=== PATIENT | male | born 1985 | race Caucasian/White ===

== ENCOUNTER → 2018-03-09 08:45 | Outpatient (CLI) | payer MEDICARE ==
[2018-03-09 10:01] LABS: ALBUMIN 3.6 g/dL (3.4-5.0); BILIRUBIN - DIRECT 0.09 mg/dL (0.00-0.30); BILIRUBIN - INDIRECT 0.31 mg/dL (0.00-1.00); BILIRUBIN - TOTAL 0.4 mg/dL (0.2-1.3); PROTEIN - SERUM 7.5 g/dL (6.4-8.2)
== END | disposition home or self-care (01) ==
LOC: D.US 08:30
PROVIDERS: Internal Medicine Gastroenterology
DX: K76.0 Fatty (change of) liver, not elsewhere classified (principal)

== ENCOUNTER 2018-05-09 09:59 | Emergency (ER) | payer MEDICARE ==
[~2018-05-09] VITALS: Ht 188 cm; Wt 150.0 kg
[2018-05-09 10:09] VITALS: Ht 188 cm; Wt 150.0 kg
[2018-05-09 10:37] LABS: BASOPHILS 0.4 % (0-2); EOSINOPHILS 4.9 % (0-7); HEMATOCRIT 45.1 % (42.0-54.0); IMMATURE GRANULOCYTES 0.5 % (0-5); LYMPHOCYTES 33.5 % (15-50); MCH 27.6 pg (26.0-34.0); MCHC 33.3 g/dL (31.0-37.0); MCV 82.9 fL (80.0-100.0); MEAN PLATELET VOLUME 10.6 fL (7.4-10.4); MONOCYTES 8.1 % (2-11); NEUTROPHILS 52.6 % (40-80); PLATELET COUNT 246 10x3/uL (130-400); RBC 5.44 10x6/uL (4.20-6.10); RDW 12.8 % (11.5-14.5)
[2018-05-09 10:44] LABS: APPEARANCE CLEAR (CLEAR); BILIRUBIN NEGATIVE (NEGATIVE); COLOR YELLOW (YELLOW); GLUCOSE NEGATIVE (NEGATIVE); KETONE NEGATIVE (NEGATIVE); NITRITE NEGATIVE (NEGATIVE); PROTEIN NEGATIVE (NEGATIVE); SPECIFIC GRAVITY 1.025 (1.005-1.020); UROBILINOGEN NORMAL (NORMAL)
[2018-05-09 10:56] LABS: ALBUMIN 3.7 g/dL (3.4-5.0); ALKALINE PHOSPHATASE 58 U/L (46-116); ALT (SGPT) 69 U/L (10-68); CALC OSMOLALITY 284 mosm/kg (275-300); CALCIUM 9.1 mg/dL (8.5-10.1); CARBON DIOXIDE 26.2 mmol/L (21.0-32.0); CHLORIDE - SERUM 107 mmol/L (98-107); CREATININE - SERUM 1.3 mg/dL (0.6-1.3); GLUCOSE 111 mg/dL (74-106); POTASSIUM - SERUM 4.1 mmol/L (3.5-5.1); PROTEIN - SERUM 7.8 g/dL (6.4-8.2); SODIUM 142 mmol/L (136-145); UREA NITROGEN 14 mg/dL (7-18); eGFR NON AFRICAN AMERICAN 68 mL/min (90-120)
[2018-05-09 11:08] LABS: AMYLASE - SERUM 45 U/L (25-115); CKMB 0.9 U/L (0.0-3.6); LIPASE 117 U/L (73-393); TROPONIN-I < 0.017 ng/mL (0.000-0.060)
[2018-05-09] MEDS ORDERED: ULTRAM50 MG PO (12:00)
[2018-05-09 12:39] VITALS: BP 121/74
[2018-05-17 08:04] VITALS: Ht 188 cm; Wt 150.0 kg
== END 2018-05-09 12:41 | disposition home or self-care (01) ==
LOC: D.ER 09:59
PROVIDERS: Family Medicine
DX: R10.11 Right upper quadrant pain (principal); R16.0 Hepatomegaly, not elsewhere classified

== ENCOUNTER → 2018-05-11 06:13 | Outpatient (CLI) | payer MEDICARE ==
[2018-05-09 10:09] VITALS: BMI 42.4
[~2018-05-11 06:13] MED LIST: ULTRAM50 MG PO
[2018-05-17 08:04] VITALS: BMI 43.7
== END | disposition home or self-care (01) ==
LOC: D.MRI 06:13
DX: K76.9 Liver disease, unspecified (principal); K76.0 Fatty (change of) liver, not elsewhere classified

== ENCOUNTER 2018-05-17 06:57 | Outpatient (CLI) | payer MEDICARE ==
[~2018-05-17] VITALS: Ht 188 cm; Wt 154.5 kg
[2018-05-17 07:15] LABS: BASOPHILS 0.4 % (0-2); EOSINOPHILS 4.2 % (0-7); HEMATOCRIT 46.5 % (42.0-54.0); HEMOGLOBIN 15.7 g/dL (13.5-17.5); IMMATURE GRANULOCYTES 0.7 % (0-5); LYMPHOCYTES 34.5 % (15-50); MCH 27.9 pg (26.0-34.0); MCHC 33.8 g/dL (31.0-37.0); MCV 82.6 fL (80.0-100.0); MEAN PLATELET VOLUME 10.5 fL (7.4-10.4); MONOCYTES 9.4 % (2-11); NEUTROPHILS 50.8 % (40-80); PLATELET COUNT 244 10x3/uL (130-400); RBC 5.63 10x6/uL (4.20-6.10)
[2018-05-17 07:25] LABS: ANION GAP 12.6 mmol/L (8-16); CALCIUM 9.1 mg/dL (8.5-10.1); CARBON DIOXIDE 26.5 mmol/L (21.0-32.0); CREATININE - SERUM 1.2 mg/dL (0.6-1.3); POTASSIUM - SERUM 4.1 mmol/L (3.5-5.1)
[2018-05-17 07:30] LABS: APTT 27.8 SECONDS (22.8-39.4); INR 0.92 (0.85-1.17)
[2018-05-17 08:04] VITALS: BP 121/68; Ht 188 cm; Wt 154.5 kg
== END 2018-05-17 14:35 | disposition home or self-care (01) ==
LOC: D.SP 06:57 → D.CT 08:00 → D.SP 14:35 → D.CT 05-19 08:00
PROVIDERS: Radiology Vascular & Interventional Radiology
DX: D18.09 Hemangioma of other sites (principal); K76.0 Fatty (change of) liver, not elsewhere classified; Z01.812 Encounter for preprocedural laboratory examination

== ENCOUNTER 2018-09-11 09:54 | Emergency (ER) | payer MEDICARE ==
[~2018-09-11] VITALS: Ht 188 cm; Wt 154.5 kg
[2018-09-11 09:56] VITALS: Ht 188 cm; Wt 154.5 kg
[2018-09-11 10:33] LABS: HEMATOCRIT 44.7 % (42.0-54.0); HEMOGLOBIN 15.5 g/dL (13.5-17.5); MCHC 34.7 g/dL (31.0-37.0); MCV 80.8 fL (80.0-100.0); MEAN PLATELET VOLUME 10.5 fL (7.4-10.4); PLATELET COUNT 259 10x3/uL (130-400); RBC 5.53 10x6/uL (4.20-6.10); RDW 12.7 % (11.5-14.5); WBC 12.6 10x3/uL (4.8-10.8)
[2018-09-11 10:46] LABS: ANION GAP 17.9 mmol/L (8-16); BILIRUBIN - DIRECT 0.12 mg/dL (0.00-0.30); BILIRUBIN - INDIRECT 0.29 mg/dL (0.00-1.00); BILIRUBIN - TOTAL 0.41 mg/dL (0.2-1.3); CALCIUM 9.1 mg/dL (8.5-10.1); CREATININE - SERUM 1.3 mg/dL (0.6-1.3); POTASSIUM - SERUM 3.9 mmol/L (3.5-5.1); PROTEIN - SERUM 8.3 g/dL (6.4-8.2)
[2018-09-11 11:16] LABS: EOSINOPHILS 3 % (0-7); LYMPHOCYTES 3 % (15-50); MONOCYTES 10 % (2-11); NEUTROPHILS 58 % (40-80)
[2018-09-11 11:17] LABS: PLATELET ESTIMATE NORMAL; SMUDGE CELLS 1+; TEAR DROP CELLS 1+
[2018-09-11] MEDS ORDERED: BACLOFEN20 M1 PO (12:11)
[2018-09-11] MEDS ORDERED: BENTYL 20 MG TA20 MG PO (12:11)
[2018-09-11 12:24] VITALS: BP 121/76
== END 2018-09-11 12:25 | disposition home or self-care (01) ==
LOC: D.ER 09:54
PROVIDERS: Emergency Medicine
DX: R10.13 Epigastric pain (principal); K63.89 Other specified diseases of intestine

== ENCOUNTER 2019-03-07 21:24 | Emergency (ER) | payer MEDICARE ==
[~2019-03-07] VITALS: Ht 188 cm; Wt 159.1 kg
[~2019-03-07 21:24] MED LIST changes: +BACLOFEN20 M1 PO; +BENTYL 20 MG TA20 MG PO
[2019-03-07 21:39] VITALS: Ht 188 cm; Wt 159.1 kg
[2019-03-08 00:02] LABS: ALBUMIN 3.8 g/dL (3.4-5.0); BILIRUBIN - TOTAL 0.27 mg/dL (0.2-1.3); CALCIUM 9.3 mg/dL (8.5-10.1); CARBON DIOXIDE 28.9 mmol/L (21.0-32.0); CREATININE - SERUM 1.3 mg/dL (0.6-1.3); POTASSIUM - SERUM 3.9 mmol/L (3.5-5.1); PROTEIN - SERUM 7.9 g/dL (6.4-8.2)
[2019-03-08 00:04] LABS: HEMATOCRIT 44.5 % (42.0-54.0); HEMOGLOBIN 15.1 g/dL (13.5-17.5); LYMPHOCYTES 29.3 % (15-50); MCH 27.6 pg (26.0-34.0); MCHC 33.9 g/dL (31.0-37.0); MCV 81.2 fL (80.0-100.0); MEAN PLATELET VOLUME 10.4 fL (7.4-10.4); NEUTROPHILS 64.2 % (40-80); PLATELET COUNT 243 10x3/uL (130-400); RBC 5.48 10x6/uL (4.20-6.10); RDW 12.7 % (11.5-14.5); WBC 12.3 10x3/uL (4.8-10.8)
[2019-03-08] MEDS ORDERED: ZOFRAN4 MG PO (01:25)
[2019-03-08 01:54] VITALS: BP 122/79
== END 2019-03-08 01:54 | disposition home or self-care (01) ==
LOC: D.ER 21:24
PROVIDERS: Emergency Medicine
DX: R11.2 Nausea with vomiting, unspecified (principal); D18.09 Hemangioma of other sites

== ENCOUNTER 2019-03-28 05:48 | Outpatient (CLI) | payer MEDICARE, MEDICAID ==
--- NOTE | 2019-03-27 13:05 | NUR ---
CALLED PATIENT INSTRUCT NPO AFTER MN. NO BLOOD THINNERS PER PATIENT, WILL STAY THE NIGHT AND WILL BE AT HOSPITAL AT 0630.
[~2019-03-28] VITALS: Ht 188 cm; Wt 159.1 kg
--- NOTE | ~2019-03-28 | HEMODYNAMI ---
PATIENT:CARLOS HERNANDEZ MEDICAL RECORD: [id number] : 87 LOCATION:[facility] ADMISSION DATE: 03/28/19 Generatedon:03/28/201910:15 Patient name: CARLOS HERNANDEZ Patient #: [id number] SSN: : 1985 Date of study: 03/28/2019 Page: Of Hemodynamic Procedure Report Patient Data Patient Demographics Procedure consent was obtained First Name: CARLOS Gender: Male Last Name: MARY : 1985 [facility] Initial: MARGRET Age: 34 year(s) Patient #: [id number] Race: Unknown Additional ID: [id number] Contact details Address: [address] [place] [address] State: [place] City: [place] Zip code: [address] Admission Admission Data Admission Date: 03/28/2019 Admission Time: 5:48 Procedure Procedure Types Cath Procedure Peripheral Cath Diagnostic Procedure Miscellaneous Procedure Description Procedure Date Procedure Date: 03/28/2019 Procedure Start Time: 9:12 Procedure Staff Name Function Casey Guerra MD Performing Physician Isaak Vu RT Monitor Mia Schulte RT Scrub Sugar Schmitt RN Nurse Nicole Anthony RN Nurse Procedure Data Cath Procedure Fluoroscopy Diagnostic fluoroscopy Total fluoroscopy Time: 7.1 time: 7.1 min min Diagnostic fluoroscopy Total fluoroscopy dose: dose: 1732 mGy 1732 mGy Procedure Medications Medication Administration Route Dosage Lidocaine 1% added to field 20 Heparin Flush Bag added to field 2 bags (1000units/500ml NS) Benadryl I.V. 25 mg Fentanyl I.V. 50 mcg Versed I.V. 1 mg Benadryl I.V. 25 mg Versed I.V. 1 mg Fentanyl I.V. 50 mcg Fentanyl I.V. 50 mcg Versed I.V. 1 mg Hemodynamics Rest Heart Rate: 73 (bpm) Snapshots Pre Cath Intra NCS Post Cath Vital Signs Time Heart Resp SPO2 etCO2 NIBP (mmHg) Rhythm Pain Sedation Rate (ipm) (%) (mmHg) Status Level (bpm) 8:51:22 74 13 96 37.5 NSR 0 (11) 10(A) , No pain 8:56:01 73 14 96 42 136/88(105) NSR 0 (11) 10(A) , No pain 9:00:18 71 15 96 36 120/74(91) NSR 0 (11) 10(A) , No pain 9:04:30 73 18 96 38.3 122/74(91) NSR 0 (11) 10(A) , No pain 9:08:42 76 17 95 27.7 113/69(87) NSR 0 (11) 9(A) , No pain 9:11:45 74 13 97 41.3 117/74(99) NSR 0 (11) 8(A) , No pain 9:15:52 77 9 97 39.8 126/81(95) NSR 0 (11) 8(A) , No pain 9:20:11 71 6 93 34.5 110/75(93) NSR 0 (11) 8(A) , No pain 9:24:16 56 14 90 36 107/79(95) NSR 0 (11) 8(A) , No pain 9:28:26 76 14 92 42.8 109/71(91) NSR 0 (11) 8(A) , No pain 9:32:32 66 13 92 37.5 115/85(93) NSR 0 (11) 8(A) , No pain 9:36:44 73 14 91 40.5 116/76(93) NSR 0 (11) 8(A) , No pain 9:40:56 74 10 98 42.8 127/80(95) NSR 0 (11) 8(A) , No pain 9:45:10 79 16 97 33 119/76(92) NSR 0 (11) 8(A) , No pain 9:49:22 75 8 99 40.6 124/82(94) NSR 0 (11) 8(A) , No pain 9:53:36 74 15 98 36.8 115/84(95) NSR 0 (11) 8(A) , No pain 9:57:50 78 12 98 18.8 126/72(100) NSR 0 (11) 8(A) , No pain 10:02:06 76 16 97 38.3 124/79(95) NSR 0 (11) 8(A) , No pain 10:06:20 81 12 97 30.8 120/82(96) NSR 0 (11) 8(A) , No pain 10:10:32 73 13 95 23.2 122/81(101) NSR 0 (11) 8(A) , No pain Medications Time Medication Route Dose Verified Delivered Reason Notes Effec tiveness by by 8:53:55 Lidocaine 1% added 20ml Casey Peña for local to vial Guerra Guerra anesthetic field MD RUDOLPH 8:54:10 Heparin Flush added 2 Casey Peña used for Bag to bags Guerra Guerra procedure (1000units/500ml field MD RUDOLPH NS) 8:56:38 Benadryl I.V. 25 mg Casey Sugar used for Guerra Schmitt radiology aide 9:10:21 Fentanyl I.V. 50 Casey Sugar for mcg Guerra Schmitt RN sedation 9:10:33 Versed I.V. 1 mg Casey Sugar for Guerra Schmitt RN sedation 9:16:08 Benadryl I.V. 25 mg Casey Marki used for Guerra Schmitt radiology aide 9:19:28 Versed I.V. 1 mg Casey Sugar for Guerra Schmitt RN sedation 9:19:36 Fentanyl I.V. 50 Casey Sugar for mcg Guerra Schmitt RN sedation 9:56:06 Fentanyl I.V. 50 Casey Sugar for mcg Guerra Schmitt RN sedation 9:56:14 Versed I.V. 1 mg Casey Sugar for Guerra Schmitt RN sedation Procedure Log Time Note 8:42:41 Isaak Vu RT (R) (CV) sent for patient. Start room use. 8:42:51 Time tracking: Regular hours (M-F 7:00 - 5:00) 8:42:56 Plan of Care:Hemodynamics will remain stable., Cardiac rhythm will remain stable., Comfort level will be maintained., Respiratory function will remain adequate., Patient/ family verbilizes understanding of procedure., Procedure tolerated without complication., Recovers from procedure without complications.. 8:43:03 Patient received from Outpatients to IR Alert and oriented. Tansferred to table in Supine position. 8:43:08 Signed procedure consent form obtained from patient. 8:43:09 Correct patient and procedure confirmed by team. 8:43:10 ECG and BP/O2 sat monitors applied to patient. 8:43:22 Full Disclosure recording started 8:43:23 - 8:43:29 H&P Date Dictated: 03/28/2019 H&P Addendum completed by physician on day of procedure. (MUST COMPLETE FOR ALL OUTPATIENTS). 8:43:32 Pre-procedure instructions explained to patient. 8:43:32 Pre-op teaching completed and patient verbalized understanding. 8:43:37 Use device set IR Diagnostic 8:43:38 ACIST Syringe (05377) opened to sterile field. 8:43:38 ACIST Hand Control (33788) opened to sterile field. 8:43:39 ACIST Manifold (55720) opened to sterile field. 8:43:39 Bag Decanter (2001S) opened to sterile field. 8:43:40 Sterile Angiographic Pack opened to sterile field. 8:43:40 Tegaderm 4 x 4 (1626W) opened to sterile field. 8:43:50 Family in waiting room. 8:43:52 Patient NPO since Midnight. 8:43:56 Is the patient allergic to Iodine/contrast media? No. 8:44:12 Is patient on blood thinner?No 8:44:37 Patient diabetic? No. 8:44:40 - 8:44:40 ----Pre-sedation anethsthesia assessment.---- 8:44:42 Previous problem with sedation/anesthesia? No ? 8:44:43 Snore? Yes 8:44:45 Sleep apnea? No 8:44:46 Deviated septum? No 8:44:47 Opens mouth fully? Yes 8:44:49 Sticks out tongue? Yes 8:44:55 Airway obstruction? No ? 8:44:57 Dentures? No ? 8:45:02 Sharps counted by scrub and verified by R.N. 8:45:02 Alarms reviewed by R. N. 8:45:10 IV patent on arrival in left hand with 0.45%NaCl at [facility]. 8:49:40 Pre procedure: right dorsailis pedis pulse 1+ Palpable, but thready & weak; easily obliterated 8:49:43 Pre procedure: right posterior tibial pulse 1+ Palpable, but thready & weak; easily obliterated 8:49:51 Baseline sample Acquired. 8:49:51 Vital chart was started 8:53:55 Lidocaine 1% 20ml vial added to field was administered by Casey Guerra MD; for local anesthetic; 8:54:10 Heparin Flush Bag (1000units/500ml NS) 2 bags added to field was administered by Casey Guerra MD; used for procedure; 8:56:38 Benadryl 25 mg I.V. was administered by Sugar Schmitt RN; used for procedure; 9:00:55 GLIDE WIRE ANGLE 180cm (RP0566) opened to sterile field. 9:01:03 TORQUE DEVICE PLASTIC .038 ( TD01) opened to sterile field. 9:09:20 Physician arrived 9::21 --------ALL STOP TIME OUT------ 9:09:22 Final Timeout: patient, procedure, and site verified with staff and physician. All members of the team are in agreement. 9:09:25 Right groin site verified by team. 9:09:28 Fire Safety Assessment: A--An alcohol-based skin anteseptic being used preoperatively., C--Open oxygen or nitrous oxide is being used. 9:09:36 Sedation plan: IV Moderate Sedation Medication:Versed, Fentanyl 9:10:21 Fentanyl 50 mcg I.V. was administered by Sugar Schmitt RN; for sedation; 9:10:33 Versed 1 mg I.V. was administered by Sugar Schmitt RN; for sedation; 9:10:35 Procedure started. 9:12:21 Cordis 5Fr Lucas Destination sheath opened to sterile field. 9:12:27 PURCELL 180cm wire (S78445) opened to sterile field. 9:12:28 DOC .035 wire (A15208) opened to sterile field. 9:12:28 SHEATH 5FR Lucas (VMW986) opened to sterile field. 9:12:29 PERCUTANEOUS ENTRY 19GA needle opened to sterile field. 9:12:33 Local anesthetic to right femoral artery with Lidocaine 1% by Casey Guerra MD.INITIAL ACCESS ONLY 9:16:08 Benadryl 25 mg I.V. was administered by Sugar Schmitt RN; used for procedure; 9:19:28 Versed 1 mg I.V. was administered by Sugar Schmitt RN; for sedation; 9:19:36 Fentanyl 50 mcg I.V. was administered by Sugar Schmitt RN; for sedation; 9:20:22 GLIDE CATHETER 5FR COBRA 65cm (CG502) opened to sterile field. 9:27:55 STOPCOCK 3-Way Large Bore (R84575) opened to sterile field. 9:33:51 FATHOM 200cm wire ([id number]) opened to sterile field. 9:33:[address] 18 ANGLED microcatheter ([id number]) opened to sterile field. 9:42:37 RENEGADE HI-MARIA FERNANDA microcatheter ([id number]) opened to sterile field. 9:56:06 Fentanyl 50 mcg I.V. was administered by Sugar Schmitt RN; for sedation; 9:56:14 Versed 1 mg I.V. was administered by Sugar Schmitt RN; for sedation; 10:00:32 ANGIOSEAL-[facility] PLUS 6 FR opened to sterile field. 10:02:30 Procedure ended.(Physican Out) 10:03:20 Fluoroscopy time 07.10 minutes. 10:03:25 Fluoroscopy dose: 1732 mGy 10:03:25 Flurop Dose total: 1732 10:03:28 Sharps counted by scrub and verified by R.N. 10:03:39 Post-op/insertion site Right Femoral artery dressed using a 4 x 4 and Tegaderm. 10:05:09 Post Procedure Pulses reassessed and unchanged 10:05:11 Post procedure instruction explained to patient.Patient verbalizes understanding. 10:05:12 Procedure and supply charges have been captured, reviewed, submitted an d are correct. 10:14:28 Report given to Outpatients. 10:14:33 Patient transfered to Outpatients with Stretcher. 10:15:03 Vital chart was stopped Device Usage Item Name Manufacture Quantity Catalog Hospital Part Current Minima l Lot# / Number Charge Number Stock Stock Serial# Code ACIST Syringe Acist 1 96355 451857 233142 927176 20 (06500) Medical Systems Inc ACIST Hand Acist 1 56514 618169 296939 001797 5 Control Medical (76674) Systems Inc ACIST Acist 1 51856 432779 383924 294409 5 Manifold Medical (15586) Systems Inc Bag Decanter Microtek 1 2001S 587633 83336 512887 5 (2001S) Medical Inc. Sterile Cardinal 1 [id number] 436452 693700 5 Angiographic Health Pack Tegaderm 4 x 3M 1 1626W 553895 500953 342682 5 4 (1626W) GLIDE WIRE Terumo 1 RG9196 593084 633518 119101 5 ANGLE 180cm (CO6608) TORQUE DEVICE Eaton 1 TD01 225739 708210 172596 5 PLASTIC .038 Scientific ( TD01) Cordis 5Fr Cardinal 1 54-74354 026514 06858 086022 5 Lucas [employer] Destination sheath PURCELL 180cm Cook Medical 1 C20770 228618 294911 5 wire (Z04164) DOC .035 wire [employer] Medical 1 C32542 865442 264608 5 (O06888) SHEATH 5FR Terumo 1 KOL300 244457 503797 816078 5 Lucas (NRI026) PERCUTANEOUS [employer] Medical 1 J00138 003390 994315 5 [id number] ENTRY 19GA needle GLIDE Terumo 1 CG502 776811 257186 5 CATHETER 5FR COBRA 65cm (CG502) STOPCOCK [employer] 1 S48549 650974 7681 031240 5 [id number] 3-Way Large Bore (X67308) FATHOM 200cm Eaton 1 [id number] 650620 172613 679569 5 [id number] wire Scientific ([id number]) RENEGADE STC Eaton 1 [id number] 691727 756334 5 18 ANGLED Scientific microcatheter ([id number]) RENEGADE Eaton 1 [id number] 135521 482068 5 [id number] HI-MARIA FERNANDA Scientific microcatheter ([id number]) ANGIOSEAL-[facility] 1 608524 615667 954535 379288 5 [id number] PLUS 6 FR Signature Audit [place] Stage Time Signature Unsigned Intra-Procedure 03/28/2019 Isaak 10:15:00 AM Horace RT (R) (CV) [facility] [address] [place] [address]
[~2019-03-28 05:48] MED LIST changes: +ZOFRAN4 MG PO
[2019-03-28 06:28] LABS: BASOPHILS 0.3 % (0-2); EOSINOPHILS 2.7 % (0-7); HEMATOCRIT 41.8 % (42.0-54.0); HEMOGLOBIN 14.4 g/dL (13.5-17.5); IMMATURE GRANULOCYTES 0.5 % (0-5); LYMPHOCYTES 30.3 % (15-50); MCH 27.4 pg (26.0-34.0); MCHC 34.4 g/dL (31.0-37.0); MCV 79.6 fL (80.0-100.0); MEAN PLATELET VOLUME 10.2 fL (7.4-10.4); MONOCYTES 10.2 % (2-11); PLATELET COUNT 223 10x3/uL (130-400); RBC 5.25 10x6/uL (4.20-6.10); RDW 12.8 % (11.5-14.5); WBC 10.6 10x3/uL (4.8-10.8)
[2019-03-28 06:46] LABS: ANION GAP 14.1 mmol/L (8-16); APTT 27.9 SECONDS (22.8-39.4); CALCIUM 8.8 mg/dL (8.5-10.1); CREATININE - SERUM 1.2 mg/dL (0.6-1.3); INR 0.93 (0.85-1.17); POTASSIUM - SERUM 4.1 mmol/L (3.5-5.1)
[2019-03-28] MEDS ORDERED: INVEGA SUSTENNA IM (07:45)
[2019-03-28 07:52] VITALS: BP 132/71; Ht 188 cm; Wt 159.1 kg
--- NOTE | 2019-03-28 11:01 | NUR ---
1025 PT IS AWARE TO KEEP RLE STRAIGHT AND NOT TO BEND IT FOR 4 HOURS.
--- NOTE | 2019-03-28 11:06 | NUR ---
1050 VITAL SIGNS ARE BEING DOCUMENTED ON POST PROCEDURE FORM AND IS PART OF THE PAPER CHART.
--- NOTE | 2019-03-28 14:37 | NUR ---
1417 VSS. NO BLEEDING OR HEMATOMA IN RIGHT GROIN. PT READY TO GO HOME. IV DC'D. CATHETER TIP INTACT. NO BLEEDING AT SITE. BANDAID APPLIED.
--- NOTE | 2019-03-28 14:39 | NUR ---
1420 PT UP ON SIDE OF BED GETTING DRESSED. GIRLFRIEND CAME TO NURSING DESK SAYING PT DID NOT FEEL WELL. ON EXAMINATION, PT WAS PALE. SAID HE FELT LIKE HE WAS GOING TO FAINT. HAD PT LIE DOWN. B/P 100/60 1425 AFTER LYING DOWN FOR A COUPLE OF MINUTES B/P HAS COME UP TO 123/66 HR 72 O2 SAT 96%. CALLED SPECIALS AND SPOKE WITH SCOT SORIA RN. STATES THAT RANDALL WILL COME TO SEE PT.
--- NOTE | 2019-03-28 14:41 | NUR ---
1430 STAT HCT AND HGB HAS BEEN ORDERED BY DR EVANS. LAB CALLED TO DRAW BLOOD.
--- NOTE | 2019-03-28 14:44 | NUR ---
1441 LAB DRAWN FOR STAT H&H.
[2019-03-28 15:04] LABS: HEMATOCRIT 41.1 % (42.0-54.0); HEMOGLOBIN 14.1 g/dL (13.5-17.5)
--- NOTE | 2019-03-28 15:28 | NUR ---
1500 HCT AND HGB RESULTS IN COMPUTER. NO DROP IN VALUES. DR EVANS NOTIFIED. 1510 DR EVANS HERE TO EVALUATE PT. STATES THAT PT IS CLEARED TO BE DISCHARGED HOME. 1520 B/P 114/64 WITH HOB AT 45 DEGREES. 1524 B/P 118/79 WITH PT SITTING ON SIDE OF BED. PT STATES HE FEELS MUCH BETTER. COLOR GOOD. NO NAUSEA. 1532 PT DRESSED AND READY FOR DISCHARGE. NO C/O NAUSEA OR FEELING FAINT. COLOR GOOD. STATES HE IS READY TO GO HOME.
== END 2019-03-28 15:32 | disposition home or self-care (01) ==
LOC: D.SP 05:48 → D.RAD 08:30 → D.SP 08:30
PROVIDERS: ATTEND Specialist
DX: D18.09 Hemangioma of other sites (principal)